=== PATIENT | female | born 1955 | race Caucasian/White ===

== ENCOUNTER 2023-04-15 04:49 | Day surgery (SDC) | payer OTHER, BC ==
[2023-04-10 15:28] VITALS: BMI 20.7
[2023-04-15 08:34] VITALS: TEMP 97
[2023-04-15 09:17] VITALS: BP 126/52; PULSE 47; RESP 10
== END 2023-04-15 09:50 | disposition home or self-care (01) ==
LOC: JASU-ENDO 04:49
PROVIDERS: ATTEND Internal Medicine Gastroenterology
PROC: 0DJD8ZZ Inspection of Lower Intestinal Tract, Via Natural or Artificial Opening Endoscopic (ICD-10-PCS; principal; 2023-04-15 08:00)
DX: Z12.11 Encounter for screening for malignant neoplasm of colon (principal); Z86.010 Personal history of colon polyps; K64.8 Other hemorrhoids; K57.30 Diverticulosis of large intestine without perforation or abscess without bleeding; K59.89 Other specified functional intestinal disorders